=== PATIENT | female | born 1970 | race Caucasian/White ===

== ENCOUNTER 2022-08-02 10:54 | Emergency (ER) | payer OTHER ==
[~2022-08-02] VITALS: Ht 162.6 cm; Wt 55.0 kg
[2022-08-02] MEDS ORDERED: IBUPROFEN 600MG TABLET PO NR (11:30)
[2022-08-02 12:23] LABS: HCG SCREEN NEGATIVE
[2022-08-02] MEDS ORDERED: MORPHINE SULFATE 4 MG/ML CPJ (NOT FOR IM USE) IV ONE (12:30)
[2022-08-02] MEDS ORDERED: OXYC-100 PO (13:19)
[2022-08-02] MEDS ORDERED: IBUP-2028 PO (13:19)
[2022-08-02 13:52] VITALS: BP 117/74
== END 2022-08-02 14:27 | disposition home or self-care (01) ==
LOC: ER 10:54
DX: S39.82XA Other specified injuries of lower back, initial encounter (principal); R51.9 Headache, unspecified; E78.00 Pure hypercholesterolemia, unspecified; Z90.49 Acquired absence of other specified parts of digestive tract; Z98.51 Tubal ligation status; W01.0XXA Fall on same level from slipping, tripping and stumbling without subsequent striking against object, initial encounter; Y93.89 Activity, other specified; Y92.59 Other trade areas as the place of occurrence of the external cause; Y99.8 Other external cause status
CPT/HCPCS: 72100; 73502; 84703; 96374; 99284; J2270